=== PATIENT | male | born 1975 | race Caucasian/White ===

== ENCOUNTER 2023-04-05 10:19 | Emergency (ER) | payer BC, SELFPAY ==
[2023-04-05 10:21] VITALS: BP 176/100
--- NOTE | 2023-04-05 11:16 | ED.GENMED ---
History of Present Illness
General
Chief Complaint: Abdominal Pain
Source: patient
Time Seen by Provider: 04/05/23 11:04
Travel History
Have you had any contact with someone who has COVID-19?: No
Do you have any symptoms of coronavirus? Fever > 100 degrees, chills, cough, shortness of breath, sore throat, loss of taste or smell, muscle aches, or headache?: Yes
Symptoms:: cough, low grade temp, congestion
History of Present Illness
History of Present Illness:
47-year-old male with history of GERD on omeprazole presents complaining of 2 to 3 days worth of lower abdominal pain getting worse. Pain is made worse with eating. He feels a knot in his lower abdomen does not radiate to his back. He had 1
episode of vomiting with this. Now notes chills. He also nasal congestion and cough. No diarrhea. No blood in the stool. No urinary symptoms. No other complaints at this time
Past History
Past History
ED Past Medical History: GERD
ED Past Surgical History: None
Social History
Tobacco: Non-smoker
Alcohol: None
Phy Exam
Physical Exam
Physical Exam:
General: Well-appearing male no acute respiratory
HEENT: Normocephalic atraumatic
Heart: Regular rate and rhythm no murmurs
Lungs: Clear to auscultation bilaterally no wheezing
Abdomen is soft mildly distended tender to the lower abdomen bilaterally no guarding rebound normal bowel sounds no costovertebral angle tenderness
Extremities: No cyanosis or edema
Course
Orders/Labs/Results
Orders:
Orders
04/05/23 11:06
IV Insert/Care/Rem.- Treatment PRN
Urinalysis Reflex To Culture Urgent
Date Specimen was Collected: 04/05/23
Time Specimen was Collected: 11:06
04/05/23 11:13
0.9% Sodium Chloride 1000 ml [Nss] 1,000 ml IV BOLUS
Ondansetron Injectable [Zofran] 4 mg IV NOW STA
04/05/23 11:14
CT Abd/pelvis W Iv Cont Urgent
Comment:
Reason For Exam: lower abdominal pain
04/05/23 11:16
Basic Metabolic Panel Urgent
COVID-19 Antigen Urgent
Source: Nasal Swab
Complete Blood Count/With Diff Urgent
Lipase Urgent
Influenza A+B Rapid Molecular Urgent
ALESSIO Source: Nasal Swab
Specimen Description:
Acetaminophen [Tylenol] 1,000 mg PO NOW STA
Abnormal Lab Results
04/05/23
11:16
Plt Count 125 L 10^3/uL
(130-400)
MPV 11.1 H fL
(7.4-10.4)
Abs Immat Gran (auto) 0.1 H 10^3/uL
(0-0.05)
Absolute Lymphs (auto) 0.6 L 10^3/uL
(1.2-3.4)
Absolute Monos (auto) 1.1 H 10^3/uL
(0.1-0.6)
Immature Gran % 0.7 H %
(0-0.5)
Neutrophils % 76.1 H %
(42.2-75.2)
Lymphocytes % 8.5 L %
(20.5-51.1)
Monocytes % 14.6 H %
(1.7-9.3)
Sodium 133 L mmol/L
(135-145)
Creatinine 0.6 L mg/dL
(0.7-1.3)
Glucose 257 H mg/dl
(70-99)
Calcium 8.1 L mg/dl
(8.4-10.2)
04/05/23 11:16
04/05/23 11:16
Vital Signs
Initial and Last Documented VS:
Initial Vital Signs
Temp Pulse Resp BP Pulse Ox
100.5 F H 112 16 176/100 98
04/05/23 10:21 04/05/23 10:21 04/05/23 10:21 04/05/23 10:21 04/05/23 10:21
Last Documented Vital Signs
Temp Pulse Resp BP Pulse Ox
100.5 F H 110 14 176/100 97
04/05/23 10:21 04/05/23 12:42 04/05/23 12:42 04/05/23 10:21 04/05/23 12:42
MDM/Problems Addressed
Differential Diagnosis Includes:
Abdominal pain. Patient does have fever. Also has nasal congestion and cough. Will test for COVID and flu. Given tenderness on exam will order CT scan to evaluate for appendicitis versus diverticulitis
Labs pending. Fluid Tylenol ordered
*Critical Care Note
Total Time (30-74mins, 75-104mins- exclusive of procedures): Not Applicable
Update Note
Update Note:
CT shows no acute finding. Patient did test positive for influenza virus. Labs okay. Patient has been hydrated. Recommended clear liquids. Will prescribe Zofran if needed for nausea. Stable for discharge home
ED Attending Note
-
Portions of this chart may have been created with voice recognition software.� Occasional wrong word or��sound alike� substitutions may have occurred due to the inherent limitations of voice recognition software.
Discharge Plan
Departure
Patient Disposition: Home (Routine Discharge)
Date of Disposition: 04/05/23
Time of Disposition: 13:49
Patient with high blood pressure during this ER visit?: No
Discharge Problem:
Influenza A
Instructions: Flu, Adult ED
Prescriptions:
New
ondansetron 4 mg tablet,disintegrating
4 mg PO Q8H 1 Days Qty: 3 0RF
No Action
oxycodone-acetaminophen [Percocet] 5-325 mg Tablet
1 tab PO Q6HPRN PRN (Reason: pain) Qty: 14 0RF
diclofenac potassium 50 mg tablet
50 mg PO BID PRN (Reason: pain) Qty: 14 0RF
Referrals:
Maricel Novoa, [Family Provider] -
Activity Restrictions/Additional Instructions:
Drink plenty of clear liquids. Use zofran if needed for nausea. Start with bland diet and advance as tolerated. Return if needed otherwise.
Interventions
Interventions:
*Risk Screen - Suicide Last Done: 04/05/23 10:21
*General Assessment Last Done: 04/05/23 10:21
*Neglect/Abuse Screening Last Done: 04/05/23 10:21
ED- Fall Risk Assessment Last Done: 04/05/23 11:14
MY-[place]-Iampyxrpuf Assessment Last Done: 04/05/23 11:14
[2023-04-05 11:24] VITALS: BMI 28.6
[2023-04-05] MEDS: NSS 1000 IV (11:41)
[2023-04-05] MEDS: TYLENOL 1000 MG PO (11:41)
[2023-04-05] MEDS: ZOFRAN 4 MG IV (11:41)
[2023-04-05 11:43] LABS: COVID-19 Antigen Negative (Negative)
[2023-04-05 11:57] LABS: % Basophils 0.1 % (0-2); % Immature Granulocytes 0.7 % (0-0.5); % Lymphocytes 8.5 % (20.5-51.1); % Monocytes 14.6 % (1.7-9.3); % Neutrophils 76.1 % (42.2-75.2); Absolute Immature Granulocytes 0.1 10^3/uL (0-0.05); Absolute Lymphocytes 0.6 10^3/uL (1.2-3.4); Absolute Monocytes 1.1 10^3/uL (0.1-0.6); Absolute Neutrophils 5.5 10^3/uL (1.4-6.5); Hematocrit 41.2 % (39.0-52.0); Hemoglobin 14.3 g/dL (13.0-18.0); Mean Corp Hgb Conc. 34.7 g/dL (33.0-37.0); Mean Corpuscular Hgb 29.1 pg (27.0-31.0); Mean Corpuscular Volume 83.9 fL (80.0-94.0); Mean Platelet Volume 11.1 fL (7.4-10.4); Nucleated Red Blood Cells % 0 % (-); Platelet Count 125 10^3/uL (130-400); Red Blood Cell Count 4.91 10^6/uL (4.70-6.10); Red Cell Dist. Width 13.2 % (11.5-14.5); White Blood Cell Count 7.3 10^3/uL (4.8-10.8)
[2023-04-05 12:14] LABS: Blood Urea Nitrogen 16 mg/dl (9-20); Calcium 8.1 mg/dl (8.4-10.2); Carbon Dioxide 26 mmol/L (22-30); Chloride 98 mmol/L (98-107); Estimated Creatinine Clearance > 125 ml/min; Glucose 257 mg/dl (70-99); Lipase 25 U/L (23-300); Sodium 133 mmol/L (135-145); eGFR > 60.00
[2023-04-05 13:17] VITALS: BP 147/83
[2023-04-05 14:00] VITALS: BP 136/78
== END 2023-04-05 14:10 | disposition home or self-care (01) ==
LOC: EMR 10:19
PROVIDERS: Physician Assistant; EMERGENCY PHYSICIAN Emergency Medicine; FAMILY PHYSICIAN Internal Medicine
DX: J10.1 Influenza due to other identified influenza virus with other respiratory manifestations (principal); K21.9 Gastro-esophageal reflux disease without esophagitis
CPT/HCPCS: 99284; 96374; 96361; 74177; 80048; 83690; 85025; 87502; 87811; Q9967

== ENCOUNTER 2023-04-07 21:30 | Emergency (ER) | payer BC, SELFPAY ==
[2023-04-07 21:36] VITALS: BP 178/121
[2023-04-07 21:47] VITALS: BMI 28.8
[2023-04-07 21:51] VITALS: BP 221/95
[2023-04-07 22:05] VITALS: BP 201/92
[2023-04-07 22:10] LABS: % Basophils 0.4 % (0-2); % Eosinophils 0.8 % (0-6); % Immature Granulocytes 0.4 % (0-0.5); % Lymphocytes 11.3 % (20.5-51.1); % Monocytes 14.5 % (1.7-9.3); % Neutrophils 72.6 % (42.2-75.2); Absolute Lymphocytes 0.6 10^3/uL (1.2-3.4); Absolute Monocytes 0.8 10^3/uL (0.1-0.6); Absolute Neutrophils 3.9 10^3/uL (1.4-6.5); Hematocrit 38.1 % (39.0-52.0); Hemoglobin 13.5 g/dL (13.0-18.0); Mean Corp Hgb Conc. 35.4 g/dL (33.0-37.0); Mean Corpuscular Hgb 28.5 pg (27.0-31.0); Mean Corpuscular Volume 80.5 fL (80.0-94.0); Mean Platelet Volume 10.1 fL (7.4-10.4); Nucleated Red Blood Cells % 0 % (-); Platelet Count 170 10^3/uL (130-400); Red Blood Cell Count 4.73 10^6/uL (4.70-6.10); White Blood Cell Count 5.3 10^3/uL (4.8-10.8)
[2023-04-07 22:24] LABS: ALT (SGPT) 23 U/L (0-50); AST (SGOT) 27 U/L (17-59); Alkaline Phosphatase 76 U/L (38-126); Blood Urea Nitrogen 13 mg/dl (9-20); Calcium 8.4 mg/dl (8.4-10.2); Carbon Dioxide 30 mmol/L (22-30); Chloride 98 mmol/L (98-107); Estimated Creatinine Clearance > 125 ml/min; Glucose 257 mg/dl (70-99); Potassium 3.3 mmol/L (3.5-5.1); Sodium 135 mmol/L (135-145); Total Bilirubin 1.1 mg/dl (0.2-1.3); eGFR > 60.00
[2023-04-07 22:33] LABS: Total Protein 5.9 g/dl (6.3-8.2)
--- NOTE | 2023-04-07 23:24 | ED.GENMED ---
History of Present Illness
<RENAE Jackson - Last Filed: 04/08/23 01:36>
General
Chief Complaint: Breathing Problem
Source: patient
Exam Limitations: none
Time Seen by Provider: 04/07/23 23:03
Travel History
Have you had any contact with someone who has COVID-19?: No
Do you have any symptoms of coronavirus? Fever > 100 degrees, chills, cough, shortness of breath, sore throat, loss of taste or smell, muscle aches, or headache?: No
History of Present Illness
History of Present Illness:
This is a 47 year old male that comes in with c/o SOB. States that he feels like he can't breath. States that this started at 6pm and it hurts to take a deep breath. States that he has a cough chest pain. States that he is nauseated and has a
headache. States that he also had chills. Denies any fever, abd pain, vomiting, diarrhea, dizziness, urinary burning.
Past History
<RENAE Jackson - Last Filed: 04/08/23 01:36>
Past History
ED Past Medical History: Asthma, GERD and NIDDM (Diet controlled)
ED Past Surgical History: None
Social History
Tobacco: Former smoker
Alcohol: Occasional
Personal:
Living: with family
Review of Systems
<RENAE Jackson - Last Filed: 04/08/23 01:36>
Review of Systems
All Other Systems: ROS reviewed and negative except as documented in HPI and ROS
Constitutional: Reports fever (Unsure) and chills
EENT: Reports no symptoms
Respiratory: Reports cough and trouble breathing
Cardiac: Reports chest pain
ABD/GI: Reports nausea; Denies abdominal pain, vomiting or diarrhea
: Reports no symptoms; Denies dysuria, frequency or urgency
Musculoskeletal: Reports no symptoms
Skin: Reports no symptoms
Neurological: Reports headache; Denies dizzy
Psychiatric: Reports no symptoms
Phy Exam
<RENAE Jackson - Last Filed: 04/08/23 01:36>
General Physical Exam
General Presentation: mild distress
General age: appears stated age
General Skin: warm and dry
General Habitus: normal
General Mental: alert
General Hydration: dry mucous membranes
ENT Exam
ENT Exam: TM's normal, pharynx normal and neck supple
Eye Exam
Eye Exam: EOMI
Cardiovascular Exam
Cardiovascular Exam: no edema, normal peripheral pulses and irregularly irregular
Pulmonary Exam
Pulmonary Exam: chest non tender, no wheezing and other (Course Rhonchi throughout. moist cough noted)
Gastrointestinal Exam
Gastrointestinal Exam: normal bowel sounds, non tender, soft, no organomegaly, no pulsatile mass and non distended
Musculoskeletal Exam
Musculoskeletal Exam: full ROM and no edema
Skin Exam
Skin Exam: warm/dry, no rash, no petechia and pallor
Scores
<RENAE Jackson - Last Filed: 04/08/23 01:36>
Heart Failure Risk
Heart Failure Risk Score: Not Applicable
Course
<RENAE Jackson - Last Filed: 04/08/23 01:36>
Orders/Labs/Results
Orders:
Orders
04/07/23 21:51
Electrocardiogram (*1) Urgent
Reason for Study: Shortness of Breath
04/07/23 21:52
EKG- Treatment ONCE
04/07/23 22:01
Complete Blood Count/With Diff Urgent
Comprehensive Metabolic Panel Urgent
04/07/23 22:34
Chest [CR Chest - 2 Views ] Urgent
Comment:
Reason For Exam: short of breath
04/07/23 23:24
Acetaminophen 1000MG/100Ml [Ofirmev] 1,000 mg in 100 ml IV ONCE
Acetaminophen IV Indication:: ED Narcotic Naive Pt-ONCE
04/07/23 23:25
Ipratropium/Albuterol Sulfate [Duoneb] 3 ml INH R NOW ONE
04/07/23 23:26
Add On- LAB Urgent
Tests Added?: Pro-BNP
04/07/23 23:30
Blood Culture Q30M
ALESSIO Source: Blood/Venous
Specimen Description:
04/07/23 23:38
Dexamethasone Sod Phosphate [Decadron] 20 mg IV NOW STA
04/07/23 23:42
Lactic Acid Urgent
NT-proBNP Urgent
Comment: ADD ON
Troponin I Urgent
04/08/23 00:31
Blood Culture Q30M
ALESSIO Source: Blood/Venous
Specimen Description:
Abnormal Lab Results
04/07/23
22:01
Hct 38.1 L %
(39.0-52.0)
Absolute Lymphs (auto) 0.6 L 10^3/uL
(1.2-3.4)
Absolute Monos (auto) 0.8 H 10^3/uL
(0.1-0.6)
Lymphocytes % 11.3 L %
(20.5-51.1)
Monocytes % 14.5 H %
(1.7-9.3)
Potassium 3.3 L mmol/L
(3.5-5.1)
Glucose 257 H mg/dl
(70-99)
Total Protein 5.9 L g/dl
(6.3-8.2)
Albumin 3.0 L g/dl
(3.5-5.0)
04/07/23 22:01
04/07/23 22:01
Potassium slighlty low. Glucose nonfasting. Total protein low. Albumin slightly low. Troponin <0.012, Pro-BNP 483
Vital Signs
Initial and Last Documented VS:
Initial Vital Signs
Temp Pulse Resp BP Pulse Ox
100.7 F H 123 36 178/121 93
04/07/23 21:36 04/07/23 21:36 04/07/23 21:36 04/07/23 21:36 04/07/23 21:36
Last Documented Vital Signs
Temp Pulse Resp BP Pulse Ox
101.7 F H 105 18 173/70 97
04/07/23 23:12 04/08/23 00:45 04/08/23 00:45 04/08/23 00:00 04/08/23 00:45
<Matthew Romero, DO - Last Filed: 04/07/23 23:44>
Orders/Labs/Results
Orders:
Orders
04/07/23 21:51
Electrocardiogram (*1) Urgent
Reason for Study: Shortness of Breath
04/07/23 21:52
EKG- Treatment ONCE
04/07/23 22:01
Complete Blood Count/With Diff Urgent
Comprehensive Metabolic Panel Urgent
04/07/23 22:34
Chest [CR Chest - 2 Views ] Urgent
Comment:
Reason For Exam: short of breath
04/07/23 23:24
Acetaminophen 1000MG/100Ml [Ofirmev] 1,000 mg in 100 ml IV ONCE
Acetaminophen IV Indication:: ED Narcotic Naive Pt-ONCE
04/07/23 23:25
Ipratropium/Albuterol Sulfate [Duoneb] 3 ml INH R NOW ONE
04/07/23 23:26
Add On- LAB Urgent
Tests Added?: Pro-BNP
04/07/23 23:30
Blood Culture Q30M
ALESSIO Source: Blood/Venous
Specimen Description:
04/07/23 23:38
Dexamethasone Sod Phosphate [Decadron] 20 mg IV NOW STA
04/07/23 23:42
Lactic Acid Urgent
NT-proBNP Urgent
Comment: ADD ON
Troponin I Urgent
04/08/23 00:31
Blood Culture Q30M
ALESSIO Source: Blood/Venous
Specimen Description:
Abnormal Lab Results
04/07/23
22:01
Hct 38.1 L %
(39.0-52.0)
Absolute Lymphs (auto) 0.6 L 10^3/uL
(1.2-3.4)
Absolute Monos (auto) 0.8 H 10^3/uL
(0.1-0.6)
Lymphocytes % 11.3 L %
(20.5-51.1)
Monocytes % 14.5 H %
(1.7-9.3)
Potassium 3.3 L mmol/L
(3.5-5.1)
Glucose 257 H mg/dl
(70-99)
Total Protein 5.9 L g/dl
(6.3-8.2)
Albumin 3.0 L g/dl
(3.5-5.0)
04/07/23 22:01
04/07/23 22:01
Vital Signs
Initial and Last Documented VS:
Initial Vital Signs
Temp Pulse Resp BP Pulse Ox
100.7 F H 123 36 178/121 93
04/07/23 21:36 04/07/23 21:36 04/07/23 21:36 04/07/23 21:36 04/07/23 21:36
Last Documented Vital Signs
Temp Pulse Resp BP Pulse Ox
101.7 F H 105 18 173/70 97
04/07/23 23:12 04/08/23 00:45 04/08/23 00:45 04/08/23 00:00 04/08/23 00:45
<RENAE Jackson - Last Filed: 04/08/23 01:36>
MDM/Problems Addressed
Differential Diagnosis Includes:
PNA, Bronchitis,
MDM/Problems Addressed:
This is a 47 year old male that comes in with c/o SOB. States that he just got over the flu and then tonight he started with SOB. States that he feels like he can't catch his breath and it hurts when he takes a deep breath.
Will get labs, Chest X-ray. Patient also seen by Dr. Romero.
Back into see patient. States that he is feeling better. Occasional wheezing noted without the course breath sounds. Patient feels that he can go home. Will give patient a Nebulizer with Albuterol to use at home every 4-6 hours. Patient will also be
placed on a steroid to help with the wheezing and decrease inflammation. Patent to see his Family doctor in the next 2- 3days for recheck or return to the emergency room for increased SOB, or any other concnerns. Patient to use Tylenol or Ibuprofen
for his fever and increase his water intake to 8-8oz glasses daily.
Chronic conditions affecting care: Asthma
Acute Exacerbation and/or Progression of Chronic Illness: Asthma
<RENAE Jackson - Last Filed: 04/08/23 01:36>
*Radiology
Radiology exam reviewed: preliminary read by ED provider (Chest- negative for active disease) and radiology read reviewed (Chest-No evidence of active cardiopulmonary disease)
*Pulse Oximetry
Patient hypoxic: no
*EKG
Interpreted by ED Provider?: Yes
Heart Rate: 118
Rate: tachycardiac
Rhythm: sinus
[place]: normal axis
Interval: normal interval
QRS Pattern: normal QRS
Ischemia: no ischemia
*Director Of Materials Interpretation
Rate: tachycardiac
Heart Rate: 109
Rhythm: sinus
*Critical Care Note
Total Time (30-74mins, 75-104mins- exclusive of procedures): Not Applicable
ED Attending Note
<RENAE Jackson - Last Filed: 04/08/23 01:36>
-
Portions of this chart may have been created with voice recognition software.� Occasional wrong word or��sound alike� substitutions may have occurred due to the inherent limitations of voice recognition software.
<Matthew Romero DO - Last Filed: 04/07/23 23:44>
ED Attending Note
Patient seen and examined by attending physician: Yes
I performed the substantive portion of visit, reviewed & personally made and approve the management plan that is documented in note by myself or PILY.: Yes
ED Attending Note:
I have reviewed and agree with history and treatment plan by Xiomara Chanel. My exam reveals decreased breath sounds throughout, fever 101.7. Treat with DuoNeb and Decadron. Chest x-ray no acute findings. Suspect bronchospastic bronchitis
associated with influenza.
Discharge Plan
Departure
Patient Disposition: Home (Routine Discharge)
Date of Disposition: 04/08/23
Time of Disposition: 01:29
Patient with high blood pressure during this ER visit?: Yes
Condition: Good
Covid-19: Not Applicable
Discharge Problem:
Acute bronchitis, Asthma
Instructions: Asthma, Adult (DC), Acute Bronchitis, Adult (DC)
Prescriptions:
New
albuterol sulfate 2.5 mg /3 mL (0.083 %) solution for nebulization
2.5 mg inhalation Q4H PRN (Reason: shortness of breath or wheezing) Qty: 75 0RF
prednisone 20 mg tablet
40 mg PO DAILY Qty: 10 0RF
No Action
oxycodone-acetaminophen [Percocet] 5-325 mg Tablet
1 tab PO Q6HPRN PRN (Reason: pain) Qty: 14 0RF
diclofenac potassium 50 mg tablet
50 mg PO BID PRN (Reason: pain) Qty: 14 0RF
ondansetron 4 mg tablet,disintegrating
4 mg PO Q8H 1 Days Qty: 3 0RF
Referrals:
Rosas Peralta MD [Family Provider] - Follow up in 2-3 days
Activity Restrictions/Additional Instructions:
As discussed, your blood work shows your potassium is slightly low. Your Blood sugar is elevated. Your chest x-ray is negative for any acute disease. This maybe a combination of your Asthma with Bronchitis. You have been given steroids here and a
prescription for Prednisone for home for the next 5 days. You also have been given a Nebulizer to use at home every 6 hours for wheezing or shortness of breath. Please call your family doctor and set up a follow up appointment for recheck. Please
increase your water intake to 8-8oz glasses daily. IF YOU HAVE INCREASED SHORTNESS OF BREATH, OR YOU HAVE ANY OTHER CONCERNS PLEASE RETURN TO THE EMERGENCY ROOM.
Interventions
Interventions:
*Risk Screen - Suicide Last Done: 04/07/23 21:36
*General Assessment Last Done: 04/07/23 21:36
*Neglect/Abuse Screening Last Done: 04/07/23 21:36
ED- Fall Risk Assessment Last Done: 04/07/23 21:36
*ED COVID-19 Vaccine History Last Done: 04/07/23 21:36
ED- Cardiac Assessment Last Done: 04/07/23 21:48
ED- Pulmonary Assessment Last Done: 04/07/23 21:48
[2023-04-07] MEDS: DUONEB 3 ML INH (23:41)
[2023-04-07] MEDS: OFIRMEV 100 IV (23:41)
[2023-04-07] MEDS: DECADRON 20 MG IV (23:50)
[2023-04-08] VITALS: BP 173/70
[2023-04-08 00:15] LABS: Troponin I < 0.012 ng/ml
[2023-04-08 00:40] LABS: NT-proBNP 483 pg/ml
[2023-04-08 01:00] VITALS: BP 141/69
== END 2023-04-08 02:01 | disposition home or self-care (01) ==
LOC: EMR 21:30
PROVIDERS: Clinical Nurse Specialist Family Health; Emergency Medicine; EMERGENCY PHYSICIAN Emergency Medicine; FAMILY PHYSICIAN Internal Medicine
DX: J45.909 Unspecified asthma, uncomplicated (principal); K21.9 Gastro-esophageal reflux disease without esophagitis; E11.9 Type 2 diabetes mellitus without complications; Z87.891 Personal history of nicotine dependence; J20.9 Acute bronchitis, unspecified
CPT/HCPCS: 99283; 94640; 96374; 96375; 71046; 80053; 83605; 83880; 84484; 85025; 87040; 93005

== ENCOUNTER 2023-04-16 21:53 | Emergency (ER) | payer BC, SELFPAY ==
[2023-04-16 21:54] VITALS: BP 169/103
--- NOTE | 2023-04-16 22:51 | ED.GENMED ---
History of Present Illness
<GEOVANNA Key - Last Filed: 04/16/23 23:42>
General
Chief Complaint: Abdominal Symptoms
Source: patient
Exam Limitations: none
Time Seen by Provider: 04/16/23 22:38
Nursing documentation reviewed up to this point in time: agreed with
Travel History
Have you had any contact with someone who has COVID-19?: No
Do you have any symptoms of coronavirus? Fever > 100 degrees, chills, cough, shortness of breath, sore throat, loss of taste or smell, muscle aches, or headache?: No
History of Present Illness
History of Present Illness:
This is a 47 year old male, with a PMH of GERD, who presents to the ED c/o reflux x 2 days. Pt states he has a history of GERD that is controlled on omeprazole daily - he hasn't had a flare in years. He states he has been having uncontrolled reflux
and chest tightness for the past two days. Pt states he has been on prednisone for the past 1.5 weeks for acute bronchitis, which he finished 3 days ago. He had a telehealth appointment with his primary care 2 days ago and his doctor thought his
symptoms were due to discontinuing prednisone 3 days ago. Pt states he also went to urgent care today and was prescribed sucralfate, which has not helped his symptoms. Pt states he feels like there is something stuck in his chest. Pt had some
chicken noodle soup today which made his symptoms feel worse. He adds that he tried taking pepto bismol yesterday but it made him dry heave. Eating or drinking make his symptoms worse. He denies any SOB, abdominal pain, fever, nausea, vomiting,
diarrhea or constipation. He adds that he is a diabetic but he has not had his sugars checked in awhile and does not take any medications for it.
Past History
<GEOVANNA Key - Last Filed: 04/16/23 23:42>
Past History
ED Past Medical History: Asthma, GERD and NIDDM (Diet controlled)
ED Past Surgical History: None
Social History
Tobacco: Former smoker
Alcohol: Occasional
Drug: None
Personal:
Living: with family
Family History
Family History: CAD (sister has a CABG, father)
Review of Systems
<ST ShahidMS - Last Filed: 04/16/23 23:42>
Review of Systems
Allergies reviewed?: Yes
All Other Systems: ROS reviewed and negative except as documented in HPI and ROS
Constitutional: Reports no symptoms; Denies fever
EENT: Reports no symptoms
Respiratory: Reports no symptoms; Denies trouble breathing
Cardiac: Reports chest pain
ABD/GI: Reports other (reflux); Denies abdominal pain, nausea, vomiting, diarrhea or constipated
: Reports no symptoms
Musculoskeletal: Reports no symptoms
Skin: Reports no symptoms
Neurological: Reports no symptoms
Psychiatric: Reports no symptoms
Phy Exam
<Hola Mansfield [facility] - Last Filed: 04/16/23 23:42>
General Physical Exam
General Presentation: no apparent distress
General Skin: warm and dry
General Habitus: normal
General Mental: alert
General Hydration: dry mucous membranes
ENT Exam
ENT Exam: pharynx normal, normocephalic and swallowing well
Cardiovascular Exam
Cardiovascular Exam: regular rate/rhythm, no edema, no murmur and normal peripheral pulses
Pulmonary Exam
Pulmonary Exam: lungs clear, no respiratory distress, no wheezing and no cough
Gastrointestinal Exam
Gastrointestinal Exam: normal bowel sounds, non tender, soft and non distended
Neurological Exam
Neurological Exam: alert and oriented x3
Musculoskeletal Exam
Musculoskeletal Exam: full ROM and no edema
Skin Exam
Skin Exam: normal color and warm/dry
Psychiatric Exam
Psychiatric Exam: normal mood/affect
Course
<GEOVANNA Key - Last Filed: 04/16/23 23:42>
Orders/Labs/Results
Orders:
Orders
04/16/23 21:57
ECG [Electrocardiogram (*1)] Urgent
Reason for Study: Other
Other Reason for Exam: indigestion
04/16/23 21:58
EKG- Treatment ONCE
04/16/23 23:28
Mag Hydrox/Al Hydrox/Simeth [Maalox] 30 ml Phenobarb/Hyoscy/Atropine/Scop [] 10 ml Viscous Lidocaine 2% [Xylocaine Viscous Cup] 10 ml PO NOW
Pantoprazole [Protonix IV] 40 mg IV NOW STA
04/16/23 23:35
Basic Metabolic Panel Urgent
Hgba1c [Glycohemoglobin (HgbA1c)] Urgent
Troponin I Urgent
04/16/23 23:46
Mag Hydrox/Al Hydrox/Simeth [Maalox] 30 ml .ROUTE .STK-MED ONE
Phenobarb/Hyoscy/Atropine/Scop [] 10 ml .ROUTE .STK-MED ONE
04/16/23 23:47
Viscous Lidocaine 2% [Xylocaine Viscous Cup] 15 ml .ROUTE .STK-MED ONE
04/16/23 23:49
0.9% Sodium Chloride 500 ml [Nss] 1,000 ml IV NOW STA
04/17/23 00:00
CT Chest Angio W/wo Iv Contras Urgent
Reason For Exam: acute SSCP rad to back, Accel HTN
04/17/23 01:25
Sucralfate Suspension [Carafate Suspension] 1 gm PO NOW STA
Abnormal Lab Results
04/16/23
23:35
Sodium 132 L mmol/L
(135-145)
BUN 22 H mg/dl
(9-20)
Creatinine 0.6 L mg/dL
(0.7-1.3)
Glucose 309 H mg/dl
(70-99)
Calcium 8.1 L mg/dl
(8.4-10.2)
04/16/23 23:35
Vital Signs
Initial and Last Documented VS:
Initial Vital Signs
Temp Pulse Resp BP Pulse Ox
98.0 F 117 20 169/103 95
04/16/23 21:54 04/16/23 21:54 04/16/23 21:54 04/16/23 21:54 04/16/23 21:54
Last Documented Vital Signs
Temp Pulse Resp BP Pulse Ox
98.0 F 105 19 165/98 94
04/16/23 21:54 04/16/23 23:15 04/16/23 23:15 04/16/23 23:08 04/16/23 23:15
<Concetta Peck DO - Last Filed: 04/17/23 02:06>
Orders/Labs/Results
Orders:
Orders
04/16/23 21:57
ECG [Electrocardiogram (*1)] Urgent
Reason for Study: Other
Other Reason for Exam: indigestion
04/16/23 21:58
EKG- Treatment ONCE
04/16/23 23:28
Mag Hydrox/Al Hydrox/Simeth [Maalox] 30 ml Phenobarb/Hyoscy/Atropine/Scop [] 10 ml Viscous Lidocaine 2% [Xylocaine Viscous Cup] 10 ml PO NOW
Pantoprazole [Protonix IV] 40 mg IV NOW STA
04/16/23 23:35
Basic Metabolic Panel Urgent
Hgba1c [Glycohemoglobin (HgbA1c)] Urgent
Troponin I Urgent
04/16/23 23:46
Mag Hydrox/Al Hydrox/Simeth [Maalox] 30 ml .ROUTE .STK-MED ONE
Phenobarb/Hyoscy/Atropine/Scop [] 10 ml .ROUTE .STK-MED ONE
04/16/23 23:47
Viscous Lidocaine 2% [Xylocaine Viscous Cup] 15 ml .ROUTE .STK-MED ONE
04/16/23 23:49
0.9% Sodium Chloride 500 ml [Nss] 1,000 ml IV NOW STA
04/17/23 00:00
CT Chest Angio W/wo Iv Contras Urgent
Reason For Exam: acute SSCP rad to back, Accel HTN
04/17/23 01:25
Sucralfate Suspension [Carafate Suspension] 1 gm PO NOW STA
Abnormal Lab Results
04/16/23
23:35
Sodium 132 L mmol/L
(135-145)
BUN 22 H mg/dl
(9-20)
Creatinine 0.6 L mg/dL
(0.7-1.3)
Glucose 309 H mg/dl
(70-99)
Calcium 8.1 L mg/dl
(8.4-10.2)
04/16/23 23:35
Vital Signs
Initial and Last Documented VS:
Initial Vital Signs
Temp Pulse Resp BP Pulse Ox
98.0 F 117 20 169/103 95
04/16/23 21:54 04/16/23 21:54 04/16/23 21:54 04/16/23 21:54 04/16/23 21:54
Last Documented Vital Signs
Temp Pulse Resp BP Pulse Ox
98.0 F 105 19 165/98 94
04/16/23 21:54 04/16/23 23:15 04/16/23 23:15 04/16/23 23:08 04/16/23 23:15
<Concetta Peck DO - Last Filed: 04/17/23 02:06>
*Radiology
Radiology exam reviewed: radiology read reviewed
*Pulse Oximetry
Patient hypoxic: no
*EKG
Interpreted by ED Provider?: Yes
Comparison EKG: no changes (Unchanged from previous April 07, 2023)
Rate: tachycardiac
Rhythm: sinus
[place]: normal axis
Interval: normal interval
QRS Pattern: normal QRS
Ischemia: non-specific ST changes
*Sample Selector Interpretation
Rate: normal
Interpretation: normal
Rhythm: sinus
*Critical Care Note
Total Time (30-74mins, 75-104mins- exclusive of procedures): Not Applicable
ED Attending Note
<GEOVANNA Key - Last Filed: 04/16/23 23:42>
-
Portions of this chart may have been created with voice recognition software.� Occasional wrong word or��sound alike� substitutions may have occurred due to the inherent limitations of voice recognition software.
<Concetta Peck DO - Last Filed: 04/17/23 02:06>
ED Attending Note
Patient seen and examined by attending physician: Yes
I performed the substantive portion of visit, reviewed & personally made and approve the management plan that is documented in note by myself or PILY.: Yes
I performed a history and physical exam of patient and discussed management with resident, I reviewed resident's note and agree with documented findings and plan of care.: Yes
ED Attending Note:
This is a 47-year-old gentleman who has history of intermittent asthma, GERD, gve-[id number] diabetes, hypertension who was evaluated in this ED April 05 and then again April 07 initially with URI symptoms and lower abdominal pain.
Found to have acute influenza. CT of the abdomen pelvis was unremarkable. He returned on April 07 with persistent cough, exacerbation of asthma placed on a 5-day course of prednisone 40 mg daily and albuterol inhaler. Cough and wheezing have
completely resolved but patient noted acute exacerbation of GERD symptoms that began on March 1 day after completion of prednisone.
He does have history of GERD, generally well-controlled, maintained on omeprazole 40 mg daily. Over the past 2 and half days he has had persistent significant substernal chest discomfort that is worse with swallowing.
Evaluated at urgent care earlier today and prescribed Carafate tablets that have been ineffective. He denies cough nor shortness of breath. He had 1 episode of vomiting shortly after consuming a dose of Pepto-Bismol.
He has been able to swallow liquids but has noted significant substernal chest pain with swallowing. Other than liquids, he has had limited oral intake over the past 2 and half days.
He has had no hematemesis.
He has history of diabetes had been maintained on metformin in the past but admits to neglecting follow-up with his PCP, neglecting to refill his prescription since onset of COVID.
Strong family history of coronary artery disease in his father and sister.
Upon review of records patient is noted to have significantly elevated blood pressure during several recent ED visits.
GENERAL: 47-year-old gentleman appears somewhat older than stated age, awake and alert, appears mildly uncomfortable. is accompanying.
EYE: anicteric
NECK: Supple, nontender, no meningismus, no significant adenopathy.
ENT: posterior pharynx is clear, oral mucosa is minimally dry. No rhinorrhea. Speech is clear. Handling secretions well.
CARDIAC: Regular rate and rhythm. no murmur.
LUNGS: Clear breath sounds bilaterally, no acute respiratory distress, no wheezes/rales/rhonchi
ABDOMEN: Soft, nondistended, without focal tenderness, no r/g, no cvat. normoactive BS.
NEUROLOGICAL: Alert and oriented x3, no focal neuro deficits.
SKIN: Warm and dry, normal color, skin intact. No rash.
MUSCULOSKELETAL: No C/C/E. peripheral pulses are full and equal b/l. No palpable tenderness.
PSYCH: Normal and appropriate interaction.
Concern for acute exacerbation of GERD with esophagitis, ACS.
Due to significant poorly controlled hypertension, chest pain occasionally radiating to back other consideration is aortic dissection.
EKG shows sinus tachycardia, nonspecific ST-T wave abnormalities overall similar and unchanged from previous EKG April 07.
Will check troponin, BMP and check CT angio of the chest.
Will trial a GI cocktail.
04/17/2023 0203 AM
Patient reports significant but temporary relief after GI cocktail. Chest pain returned after swallowing water but he continues to have no nausea nor vomiting and no difficulty swallowing.
Labs show moderately elevated glucose of 309 but no evidence of acidosis and troponin is negative.
CTA shows no evidence of dissection there is note of mild esophagitis.
Recommend patient increase his omeprazole 40 mg to twice daily dosing over the next month/4 weeks.
Will trial a dose of liquid Carafate and if effective recommend he continue Carafate tablets dissolving and a small amount of water and take this 4 times daily as needed for acid reflux/esophagitis.
Continue clear liquids, soft bland foods.
Due to elevated glucose recommend patient resume metformin and prescription has been provided.
Blood pressure has improved but remains elevated and recommend he follow-up with his PCP next week for recheck will likely require initiation of an antihypertensive medication.
Discharge Plan
Departure
Patient Disposition: Home (Routine Discharge)
Date of Disposition: 04/17/23
Time of Disposition: 01:59
Patient with high blood pressure during this ER visit?: Yes
Condition: Good
Discharge Problem:
Acute GERD with esophagitis, poorly controlled NIDDM
Instructions: Acid Reflux and GERD in Adults (DC), BLOOD PRESSURE
Prescriptions:
New
metformin 500 mg tablet extended release 24 hr
500 mg PO BID Qty: 60 1RF
No Action
albuterol sulfate 2.5 mg /3 mL (0.083 %) solution for nebulization
2.5 mg inhalation Q4H PRN (Reason: shortness of breath or wheezing) Qty: 75 0RF
omeprazole 40 mg Capsule,Delayed Release(Dr/Ec)
40 mg PO DAILY
Referrals:
Rosas Peralta MD [Family Provider] - Call in 1-3 days for appt
Activity Restrictions/Additional Instructions:
Increase omeprazole to 40 mg twice daily over the next month.
Continue sulcrafate 1 g tablet dissolved in 30 to 40 mL of water 4 times daily as needed for esophagitis.
Continue clear liquid diet, bland soft foods over the neck several days.
Due to elevated blood sugar, we recommend you resume metformin and a prescription has been sent to your pharmacy.
Call your family doctor next week to schedule appointment for recheck.
Interventions
Interventions:
*Risk Screen - Suicide Last Done: 04/16/23 21:54
*General Assessment Last Done: 04/16/23 21:54
*Neglect/Abuse Screening Last Done: 04/16/23 23:00
ED- Fall Risk Assessment Last Done: 04/16/23 23:00
*ED COVID-19 Vaccine History Last Done: 04/16/23 23:00
XL-Ighngs-Ejivkvqhnu Assessment Last Done: 04/16/23 23:00
[2023-04-16 23:08] VITALS: BP 165/98
[2023-04-16 23:09] VITALS: BMI 26.3
[2023-04-16] MEDS: NSS 1000 ML IV (23:50)
[2023-04-16] MEDS: PROTONIX IV 40 MG IV (23:51)
[2023-04-16] MEDS: MAALOX 50 PO (23:51)
[2023-04-17 00:04] LABS: Blood Urea Nitrogen 22 mg/dl (9-20); Calcium 8.1 mg/dl (8.4-10.2); Carbon Dioxide 24 mmol/L (22-30); Chloride 99 mmol/L (98-107); Estimated Creatinine Clearance > 125 ml/min; Glucose 309 mg/dl (70-99); Sodium 132 mmol/L (135-145); eGFR > 60.00
[2023-04-17 00:16] LABS: Troponin I < 0.012 ng/ml
[2023-04-17 00:41] VITALS: BP 173/95
[2023-04-17 01:00] VITALS: BP 164/95
[2023-04-17] MEDS: CARAFATE SUSPENSION 1 GM PO (01:35)
[2023-04-17 02:00] VITALS: BP 159/99
[2023-04-17 09:29] LABS: Glycohemoglobin (HgbA1c) 12.3 % (4.0-5.6)
== END 2023-04-17 02:25 | disposition home or self-care (01) ==
LOC: EMR 21:53
PROVIDERS: EMERGENCY PHYSICIAN Emergency Medicine; FAMILY PHYSICIAN Internal Medicine
DX: K21.00 Gastro-esophageal reflux disease with esophagitis, without bleeding (principal); I10 Essential (primary) hypertension; E11.65 Type 2 diabetes mellitus with hyperglycemia; Z87.891 Personal history of nicotine dependence; J45.21 Mild intermittent asthma with (acute) exacerbation
CPT/HCPCS: 99285; 96374; 96361; 71275; 80048; 83036; 84484; 93005; Q9967